=== PATIENT | female | born 1995 | race Two or more races ===

== ENCOUNTER 2016-06-23 10:50 | Observation (INO) | payer OTHER ==
[2016-06-20 13:08] VITALS: BP 118/76
[2016-06-20 13:44] LABS: HEMOGLOBIN 13.9 g/dL (11.7-16.4)
[2016-06-20 13:53] LABS: ASPARTATE AMINO TRANSFERASE 12 U/L (15-37); BLOOD UREA NITROGEN 11 mg/dL (7-18)
[~2016-06-23] VITALS: Ht 157.5 cm; Wt 103.6 kg
[~2016-06-23 10:50] MED LIST: BUPIVACAINE/PF-EPI 0.25% 1:200K ONE; NONE PER PT
[2016-06-23] MEDS ORDERED: LACTATED RINGERS 1,000 ML IV SCH (11:40)
[2016-06-23 12:05] LABS: HCG UR OBC PASS
[2016-06-23] MEDS ORDERED: MIDAZOLAM 1 MG/ML, 2ML ONE (15:05)
[2016-06-23] MEDS ORDERED: FENTANYL PF 250 MCG/5ML ONE (15:05)
[2016-06-23] MEDS ORDERED: CEFAZOLIN 1,000 MG ONE (16:02)
[2016-06-23] MEDS ORDERED: DEXAMETHASONE 4 MG/ML, 1ML ONE (16:02)
[2016-06-23] MEDS ORDERED: ONDANSETRON 2MG/ML, 2ML ONE ×2 (16:02→18:04)
[2016-06-23] MEDS ORDERED: ROCURONIUM 10 MG/ML ONE (16:02)
[2016-06-23] MEDS ORDERED: PROPOFOL 10 MG/ML, 20ML ONE (16:02)
[2016-06-23] MEDS ORDERED: KETOROLAC 30 MG/1 ML ONE (16:02)
[2016-06-23] MEDS ORDERED: INTERCEED 3 X 4 INCH DRESSING ONE (17:09)
[2016-06-23] MEDS ORDERED: FENTANYL PF 100 MCG/2ML ONE (17:48)
[2016-06-23] MEDS ORDERED: OXYcodone 5 MG/5 ML ORAL.SOL UDC ONE (17:48)
[2016-06-23] MEDS ORDERED: HYDROmorphone 1 MG/ML, 1ML IV PRN (18:00)
[2016-06-23] MEDS ORDERED: LABETALOL 5MG/ML, 20ML IV PRN (18:00)
[2016-06-23] MEDS ORDERED: ALBUTEROL/IPRATROPIUM 2.5MG/0.5MG, 3 ML NPPB PRN (18:00)
[2016-06-23] MEDS ORDERED: PROMETHAZINE 25 MG/ML, 1ML IV PRN (18:00)
[2016-06-23] MEDS ORDERED: ACETAMINOPHEN 325 MG TABLET PO PRN (18:00)
[2016-06-23] MEDS ORDERED: MEPERIDINE/PF 25MG/0.5ML IVPush PRN (18:00)
[2016-06-23] MEDS ORDERED: OXYcodone 5 MG/5 ML ORAL.SOL UDC PO PRN (18:00)
[2016-06-23] MEDS ORDERED: ONDANSETRON 2MG/ML, 2ML IVPush PRN ×2 (18:00→19:30)
[2016-06-23] MEDS ORDERED: FENTANYL PF 100 MCG/2ML IV PRN (18:00)
[2016-06-23] MEDS ORDERED: MORPHINE SULFATE 4 MG/ML, 1ML ONE (19:07)
[2016-06-23] MEDS ORDERED: morphine SULFATE 10 MG/ML, 1ML IVPush PRN (19:30)
[2016-06-23] MEDS ORDERED: OXYcodone/APAP 7.5/325MG TABLET PO PRN (19:30)
[2016-06-23] MEDS ORDERED: METOCLOPRAMIDE 10MG TABLET PO PRN (19:30)
[2016-06-23] MEDS ORDERED: MORPHINE SULFATE 4 MG/ML, 1ML IVPush PRN (20:30)
[2016-06-23 20:40] VITALS: BP 110/77
[2016-06-23] MEDS: ONDANSETRON 2MG/ML, 2ML IVPush PRN (22:53)
[2016-06-23] MEDS: KETOROLAC 30 MG/1 ML IVPush PRN (22:53)
[2016-06-23 23:30] VITALS: BP 99/63
[2016-06-24 00:30] VITALS: BP 106/68
[2016-06-24] MEDS: LACTATED RINGERS 1,000 ML IV SCH ×3 (00:33→07:13)
[2016-06-24] MEDS: KETOROLAC 30 MG/1 ML IVPush PRN (04:57)
[2016-06-24] MEDS: ONDANSETRON 2MG/ML, 2ML IVPush PRN (04:57)
[2016-06-24 05:00] VITALS: BP 97/65
[2016-06-24 06:42] VITALS: BP 92/52
[2016-06-24] MEDS: OXYcodone/APAP 5/325MG TABLET PO PRN ×2 (10:03→13:52)
[2016-06-24 13:29] VITALS: BP 104/68
[2016-06-24] MEDS ORDERED: ONDA4TAB7 PO (14:10)
[2016-06-24] MEDS ORDERED: OXYC-223 PO (14:10)
[2016-06-24] MEDS ORDERED: METO10TA82 PO (14:12)
== END 2016-06-24 14:24 | disposition home or self-care (01) ==
LOC: OUT 10:50 → 4NOR 20:40 → OUT 06-24 08:57 → 4NOR 06-24 08:57 → DCLOUNGE 06-24 14:06
PROVIDERS: ADMIT Obstetrics & Gynecology; ATTEND Obstetrics & Gynecology
DX: D27.1 Benign neoplasm of left ovary (principal); F17.200 Nicotine dependence, unspecified, uncomplicated
CPT/HCPCS: 36415; 58662; 71020; 80053; 81025; 84703; 85025; 85610; 85730; 86850; 86900; 88307; 96374; 96375; 96376; G0378; J0690; J1100; J1885; J2250; J2270; J2405; J2704; J3010; J7120